=== PATIENT | female | born 1995 | race Caucasian/White ===

== ENCOUNTER 2017-04-27 17:35 | Emergency (ER) | payer OTHER ==
[~2017-04-27] VITALS: Ht 172.7 cm; Wt 63.5 kg
--- OUTSIDE RECORDS SUMMARY | 2017-04-27 17:43 | XMS REPORT ---
Author Param Glover [facility] eClinicalWorks Address Unknown Phone Unavailable Care Team Providers Care Fixed Wing Aircraft Flight Engineer Name Role Phone Param Thomas Unavailable Allergies No Known Allergies Problems Problem Type Condition Code Onset Dates Condition Status Problem Acne 706.1 Active Problem Well adolescent visit V20.2 Active Medications Medication Code System Code Instructions Start Date End Date Status Dosage Luisdess FE 08/[address] [facility] [address]-10 1-20 MG-MCG Orally Once a day Jun 12, 2015 1 tablet Results No Known Results Summary Purpose eClinicalWorks Submission
--- OUTSIDE RECORDS SUMMARY | 2017-04-27 17:43 | XMS REPORT ---
Author Author Param Thomas [facility] Address [address] [place] [address] Care Team Providers Care Pilot Steam Yacht Name Role Phone Param Thomas Unavailable PROBLEMS Type Condition ICD9-CM Code [id number] Code Onset Dates Condition Status SNOMED Code Problem Well adolescent visit V20.2 Active 251562777 Problem Acne 706.1 Active [id number] ALLERGIES Unknown Allergies SOCIAL HISTORY No smoking Hx information available PLAN OF CARE VITAL SIGNS MEDICATIONS Unknown Medications RESULTS No Results PROCEDURES No Known procedures IMMUNIZATIONS No Known Immunizations
--- OUTSIDE RECORDS SUMMARY | 2017-04-27 17:43 | XMS REPORT ---
Author Author Parma Thomas [facility] Address [address] [place] [address] Care Team Providers Care Turkey Picker Name Role Phone Param Thomas Unavailable PROBLEMS Type Condition ICD9-CM Code [id number] Code Onset Dates Condition Status SNOMED Code Problem Well adolescent visit V20.2 Active 405382626 Problem Acne 706.1 Active [id number] ALLERGIES Unknown Allergies SOCIAL HISTORY No smoking Hx information available PLAN OF CARE VITAL SIGNS MEDICATIONS Medication Instructions Dosage Frequency Start Date End Date Duration Status Ziggy CALIX 08/02 1-20 MG-MCG Orally Once a day 1 tablet 24h May, 90 DAYS Active RESULTS No Results PROCEDURES No Known procedures IMMUNIZATIONS No Known Immunizations
--- OUTSIDE RECORDS SUMMARY | 2017-04-27 17:43 | XMS REPORT ---
Author Param Glover [facility] eClinicalWorks Address Unknown Phone Unavailable Care Team Providers Care Concrete Precast [place] Name Role Phone Param Thomas CP Unavailable Allergies No Known Allergies Problems Problem Type Condition Code Onset Dates Condition Status Problem Acne 706.1 Active Assessment Encounter for immunization Z23 Active Problem Well adolescent visit V20.2 Active Medications No Known Medications Procedures Procedure Coding System Code Date Influenza (6 months to Adult) CPT-4 74611 Apr 22, 2015 Results No Known Results Immunizations Vaccine Administration Date Influenza (6 months to Adult) Apr 22, 2015 Summary Purpose eClinicalWorks Submission
--- OUTSIDE RECORDS SUMMARY | 2017-04-27 17:43 | XMS REPORT ---
Author Author Param Thomas [facility] Address [address] [place] [address] Care Team Providers Care Clinical Documentation Developer Name Role Phone Param Thomas Unavailable PROBLEMS Type Condition ICD9-CM Code [id number] Code Onset Dates Condition Status SNOMED Code Problem Well adolescent visit V20.2 Active 360563519 Problem Acne 706.1 Active [id number] ALLERGIES Substance Reaction Event Type Date Status N.K.D.A. Unknown Non Drug Allergy Jan, Unknown SOCIAL HISTORY No smoking Hx information available PLAN OF CARE Activity Details Follow Up prn Reason: VITAL SIGNS Weight 138.2 lbs 2017-01-30 Height 69.25 in 2017-01-30 BMI 20.26 kg/m2 2017-01-30 Blood pressure systolic 108 mm Hg 2017-01-30 Blood pressure diastolic 76 mm Hg 2017-01-30 MEDICATIONS Medication Instructions Dosage Frequency Start Date End Date Duration Status 08/02 1-20 MG-MCG Orally Once a day 1 tablet 24h Active RESULTS Name Result Date Reference Range [id number] Pap with rfx to hr HPV ASCUS, SAYDA, RICHI 2017-01-30 PROCEDURES Procedure Date Ordered Related Diagnosis Body Site OFFICE VISITEST PT January 30, 2017 PAPLIQUID BASED January 30, 2017 IMMUNIZATIONS No Known Immunizations
--- OUTSIDE RECORDS SUMMARY | 2017-04-27 17:43 | XMS REPORT ---
Author Author Param Thomas [facility] Address [address] [place] [address] Care Team Providers Care Chemical Plant Technical Director Name Role Phone Param Thomas Unavailable PROBLEMS Type Condition ICD9-CM Code [id number] Code Onset Dates Condition Status SNOMED Code Problem Well adolescent visit V20.2 Active 747449887 Problem Acne 706.1 Active [id number] ALLERGIES Unknown Allergies SOCIAL HISTORY No smoking Hx information available PLAN OF CARE VITAL SIGNS MEDICATIONS Medication Instructions Dosage Frequency Start Date End Date Duration Status Ziggy CALIX 08/02 1-20 MG-MCG Orally Once a day 1 tablet 24h May, 90 DAYS Active RESULTS No Results PROCEDURES No Known procedures IMMUNIZATIONS No Known Immunizations
--- OUTSIDE RECORDS SUMMARY | 2017-04-27 17:43 | XMS REPORT ---
Author Param Glover [facility] eClinicalWorks Address Unknown Phone Unavailable Care Team Providers Care Metal Tank Builder Name Role Phone Param Thomas Unavailable Allergies No Known Allergies Problems Problem Type Condition Code Onset Dates Condition Status Problem Acne 706.1 Active Problem Well adolescent visit V20.2 Active Medications Medication Code System Code Instructions Start Date End Date Status Dosage Luisdess FE 08/02 [facility] [id number] 1-20 MG-MCG Orally Once a day Jun 12, 2015 1 tablet Results No Known Results Summary Purpose eClinicalWorks Submission
[2017-04-27] MEDS ORDERED: NS IV 1000 ML 1,000 ML IV ONE (17:58)
[2017-04-27] MEDS ORDERED: FAMOTIDINE 20MG/2ML IV (PEPCID) IVP ONE (18:00)
[2017-04-27] MEDS ORDERED: ONDANSETRON 4 MG/2 ML (SDV) Z0FRAN IVP ONE (18:00)
[2017-04-27] MEDS ORDERED: BIRTH CONTROL (18:04)
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
[2017-04-27] MEDS ORDERED: ONDA4TAB8 SL (18:15)
[2017-04-27 18:22] LABS: BASOPHILS % (AUTO) 1 % (0-10); BILIRUBIN,URINE NEGATIVE (NEGATIVE); EOSINOPHILS # (AUTO) 0.1 10^3/uL (0.0-0.3); EOSINOPHILS % (AUTO) 2 % (0-10); KETONES,URINE NEGATIVE (NEGATIVE); LEUKOCYTE ESTERASE ,URINE 1+ (NEGATIVE); LYMPHOCYTES # (AUTO) 1.6 X 10^3 (1.0-4.0); LYMPHOCYTES % (AUTO) 19 % (12-44); MEAN CORPUSCULAR HEMOGLOBIN 28 PG (25-34); MEAN CORPUSCULAR HGB CONC 33 G/DL (32-36); MEAN CORPUSCULAR VOLUME 87 FL (80-99); MEAN PLATELET VOLUME 9.7 FL (7.4-10.4); MONOCYTES # (AUTO) 0.6 X 10^3 (0.0-1.0); MONOCYTES % (AUTO) 6 % (0-12); NEUTROPHILS # (AUTO) 6.5 X 10^3 (1.8-7.8); NEUTROPHILS % (AUTO) 73 % (42-75); NITRITE,URINE NEGATIVE (NEGATIVE); PH,URINE 8 (5-9); PLATELET COUNT 264 10^3/uL (130-400); PROTEIN,URINE 1+ (NEGATIVE); UROBILINOGEN,URINE 1 MG/DL (NORMAL); WHITE BLOOD COUNT 8.8 10^3/uL (4.3-11.0)
[2017-04-27 18:42] LABS: ALANINE AMINOTRANSFERASE 22 U/L (0-55); ALBUMIN 4.4 GM/DL (3.2-4.5); ANION GAP 13 MMOL/L (5-14); ASPARTATE AMINO TRANSFERASE 26 U/L (5-34); BILIRUBIN,TOTAL 0.3 MG/DL (0.1-1.0); BLOOD UREA NITROGEN 8 MG/DL (7-18); BUN/CREATININE RATIO 9; CALCIUM 9.1 MG/DL (8.5-10.1); CARBON DIOXIDE 21 MMOL/L (21-32); CHLORIDE 108 MMOL/L (98-107); CREATININE SERUM 0.85 MG/DL (0.60-1.30); GFR ESTIMATED > 60; GLUCOSE 96 MG/DL (70-105); MAGNESIUM 1.9 MG/DL (1.8-2.4); POTASSIUM 3.6 MMOL/L (3.6-5.0); SODIUM 142 MMOL/L (135-145); TOTAL PROTEIN 7.8 GM/DL (6.4-8.2)
[2017-04-27] MEDS ORDERED: RX-ONDANSETRON 4 MG ODT (ZOFRAN) PPK #4 PO STA (19:13)
[2017-04-27 19:35] VITALS: BP 140/99
== END 2017-04-27 19:35 | disposition home or self-care (01) ==
LOC: ER 17:37
DX: R41.3 Other amnesia (principal); E86.1 Hypovolemia; R11.0 Nausea; Z87.81 Personal history of (healed) traumatic fracture
CPT/HCPCS: 36415; 80053; 80306; 81000; 83735; 84703; 85025